=== PATIENT | male | born 1955 | race Caucasian/White ===

== ENCOUNTER 2017-09-29 19:09 | Inpatient (IN) | payer MEDICARE ==
[~2017-09-29] VITALS: Ht 185.4 cm; Wt 110.9 kg
[~2017-09-29 19:09] MED LIST: ACE500 PO; ALBUDR INH; AZIT1PAC21 PO; AZIT500T47 PO; BAC10 PO; BUPR1TAB44 SL; CALC-797 PO; CEFU500T10 PO; CLO5 PO; DIV500 PO; ESZO2TAB30 PO; HYDR2TAB41 PO; HYDR473S4 PO; LIDO35.4 TP; LIDO700A25 TP; MET800 PO; MULT-1335 PO; NOR10 PO; OMEG-8 PO; OXYC80TA52 PO; PER PO; PHEN100 PO; RAM8 PO; [UNRECOGNIZED DRUG - CODE] PO; [UNRECOGNIZED DRUG - CODE] TP
[2017-09-29] MEDS ORDERED: NS(*) 0.9% 1000 ML BAG 1,000 ML IV ONE (19:27)
[2017-09-29] MEDS ORDERED: ALBUTEROL/IPRATROPIUM 3 ML NEB NEB ONE (19:30)
--- NOTE | 2017-09-29 19:30 | ER Report ---
History and Physical Time Seen By MD: 19:14 Hx. of Stated Complaint: COUGH, FEVER, WEAKNESS HPI/ROS CHIEF COMPLAINT: Cough, fever, shortness of breath HISTORY OF PRESENT ILLNESS: This is a 62-year-old male coming by his , who presents to ED with complaint of cough, fever, shortness of breath for the past 2 days. Patient denies any previous lung issues. He denies any ill contacts. Patient states that he has been having some slight chest pain intermittently particularly with coughing. Patient has been feeling weak and having chills. REVIEW OF SYSTEMS: Constitutional: No fever, no chills. Eyes: No discharge. ENT: No sore throat. Cardiovascular: See history of present illness. No palpitations. Respiratory: See history of present illness. Gastrointestinal: No abdominal pain, no vomiting. Genitourinary: No hematuria. Musculoskeletal: No back pain. Skin: No rashes. Neurological: No headache. Allergies: Coded Allergies: aspirin (Verified Allergy, Intermediate, HIVES, 01/11/15) bacitracin (Verified Allergy, Intermediate, HIVES, 01/11/15) adhesive (Verified Allergy, Mild, 01/11/15) aluminum (Verified Allergy, Mild, 01/11/15) Uncoded Allergies: MAPLE FLAVOR (Allergy, Intermediate, RASH, 01/22/12) PECANS (Allergy, Mild, 11/07/07) RED CABBAGE (Allergy, Mild, 11/07/07) RYE (Allergy, Unknown, 10/25/12) SALMON (Allergy, Unknown, 06/14/14) Home Meds Reported Medications Nortriptyline Hcl (NORTRIPTYLINE HCL) 10 Mg Cap, 25 MG PO HS, CAP 01/11/15 Lidocaine (LIDOCAINE) 35.44 Gm Oint...g., 35.44 GM TP WEEKLY 10/25/12 Lidocaine (LIDOCAINE) 700 Mg Adh..patch, 700 MG TP DAILY 10/25/12 Baclofen (Lioresal) 10 Mg Tab, 10 MG PO BID 04/16/12 Buprenorphine Hcl/Naloxone Hcl (Suboxone 8 Mg-2 Mg Tablet) 1 Each Tab.subl, 1 EACH SL BID 04/16/12 Divalproex Sodium (Depakote) 500 Mg Tabcr, 500 MG PO BID, 0 Refills 08/28/10 Discontinued Reported Medications [place]-3 Fatty Acids/Fish Oil (OMEGA-3 FISH OIL SOFTGEL) 1 Each Capsule.dr, 1 EACH PO DAILY 10/25/12 Calcium Carbonate/Vitamin D3 (CALCIUM 600 + VIT D CAPLET) 1 Each Tablet, 1 EACH PO BID 10/25/12 Multivitamins W-Minerals (Multiple Vitamin) 1 Tab Tablet, 1 TAB PO BID 10/25/12 Discontinued Scripts Azithromycin (AZITHROMYCIN) 500 Mg Tablet, 1 TAB PO QDAY, #3 TAB 0 Refills Prov:LV ALFORD MD 01/14/15 Cefuroxime Axetil (CEFUROXIME) 500 Mg Tablet, 500 MG PO BID, #14 TAB 0 Refills Prov:LV ALFORD MD 01/14/15 Reviewed Nurses Notes: Yes Old Medical Records Reviewed: Yes Hx Smoking: No Smoking Status: Never Smoker Hx Substance Use Disorder: No Hx Alcohol Use: No Constitutional Vital Sign - Last 24 Hours 09/29/17 09/29/17 09/29/17 09/29/17 19:23 19:29 19:30 19:45 Temp 100.4 Pulse 84 80 82 Resp 20 B/P (MAP) 141/76 Pulse Ox 85 89 91 O2 Delivery Room Air O2 Flow Rate 2.0 09/29/17 09/29/17 09/29/17 09/29/17 19:47 19:47 19:50 19:51 Pulse 86 79 Resp 20 20 B/P (MAP) 140/76 (97) Pulse Ox 91 O2 Delivery Nasal Cannula O2 Flow Rate 5.0 09/29/17 09/29/17 09/29/17 09/29/17 19:51 19:56 20:00 20:20 Pulse 81 B/P (MAP) 148/78 (101) 136/60 (85) Pulse Ox 96 88 O2 Delivery Nasal Cannula O2 Flow Rate 5.0 5.0 Physical Exam General Appearance: The patient is alert, has no immediate need for airway protection and no signs of toxicity. Patient appears to be no acute distress. Eyes: Pupils equal and round no pallor or injection. ENT, Mouth: Mucous membranes are moist. Respiratory: There are no retractions, lungs are clear to auscultation. Cardiovascular: Regular rate and rhythm. Gastrointestinal: Abdomen is soft and non tender, no masses, bowel sounds normal. Neurological: Cranial nerves II through XII intact. Skin: Warm and dry, no rashes. Musculoskeletal: Neck is supple non tender. Extremities are nontender, nonswollen and have full range of motion. DIFFERENTIAL DIAGNOSIS: After history and physical exam differential diagnosis was considered for shortness of breath including but not limited to pulmonary infectious process, COPD, asthma, pulmonary embolus and congestive heart failure. Medical Decision Making Data Points Result Diagram: 09/29/17193509/29/171935 Laboratory Hematology Test 09/29/17 00:00 09/29/17 19:36 09/29/17 19:39 C-Reactive Protein 3.4 mg/dl (<1.0) Red Blood Count 5.75 M/uL (4.00-5.60) Mean Corpuscular Volume 88.7 fL (80.0-96.0) Mean Corpuscular Hemoglobin 30.5 pg (26.0-33.0) Mean Corpuscular Hemoglobin Concent 34.3 g/dL (32.0-36.0) Red Cell Distribution Width 13.2 % (11.5-14.5) Mean Platelet Volume 7.9 fL (7.2-11.1) Neutrophils (%) (Auto) 82.5 % (39.4-72.5) Lymphocytes (%) (Auto) 7.6 % (17.6-49.6) Monocytes (%) (Auto) 9.1 % (4.1-12.4) Eosinophils (%) (Auto) 0.6 % (0.4-6.7) Basophils (%) (Auto) 0.2 % (0.3-1.4) Nucleated RBC Relative Count (auto) 0.2 /100WBC Neutrophils # (Auto) 3.8 K/uL (2.0-7.4) Lymphocytes # (Auto) 0.4 K/uL (1.3-3.6) Monocytes # (Auto) 0.4 K/uL (0.3-1.0) Eosinophils # (Auto) 0.0 K/uL (0.0-0.5) Basophils # (Auto) 0.0 K/uL (0.0-0.1) Nucleated RBC Absolute Count (auto) 0.01 K/uL Prothrombin Time 13.6 seconds (12.0-14.4) Prothromb Time International Ratio 1.03 Activated Partial Thromboplast Time 35 seconds (23-35) D-Dimer Quantitative (PE/DVT) 0.33 ug/ml (0-0.50) Sodium Level 136 mmol/L (137-145) Potassium Level 4.1 mmol/L (3.5-5.0) Chloride Level 98 mmol/L (98-107) Carbon Dioxide Level 27 mmol/L (22-30) Blood Urea Nitrogen 16 mg/dl (9-21) Creatinine 0.90 mg/dl (0.66-1.25) Glomerular Filtration Rate Calc > 60.0 Random Glucose 111 mg/dl (75-110) Calcium Level 9.7 mg/dl (8.4-10.2) Total Bilirubin 0.7 mg/dl (0.2-1.3) Aspartate Amino Transf (AST/SGOT) 26 U/L (0-35) Alanine Aminotransferase (ALT/SGPT) 33 U/L (0-56) Alkaline Phosphatase 87 U/L (0-126) Troponin I < 0.012 ng/ml Total Protein 8.0 gm/dl (6.3-8.2) Albumin 4.1 g/dl (3.5-5.0) Influenza Virus Type A (PCR) Negative (NEGATIVE) Influenza Virus Type B (PCR) Negative (NEGATIVE) Chemistry Test 09/29/17 00:00 09/29/17 19:36 09/29/17 19:39 C-Reactive Protein 3.4 mg/dl (<1.0) White Blood Count 4.6 k/uL (4.5-11.0) Red Blood Count 5.75 M/uL (4.00-5.60) Hemoglobin 17.5 g/dL (14.0-18.0) Hematocrit 51.0 % (42.0-52.0) Mean Corpuscular Volume 88.7 fL (80.0-96.0) Mean Corpuscular Hemoglobin 30.5 pg (26.0-33.0) Mean Corpuscular Hemoglobin Concent 34.3 g/dL (32.0-36.0) Red Cell Distribution Width 13.2 % (11.5-14.5) Platelet Count 139 K/uL (150-450) Mean Platelet Volume 7.9 fL (7.2-11.1) Neutrophils (%) (Auto) 82.5 % (39.4-72.5) Lymphocytes (%) (Auto) 7.6 % (17.6-49.6) Monocytes (%) (Auto) 9.1 % (4.1-12.4) Eosinophils (%) (Auto) 0.6 % (0.4-6.7) Basophils (%) (Auto) 0.2 % (0.3-1.4) Nucleated RBC Relative Count (auto) 0.2 /100WBC Neutrophils # (Auto) 3.8 K/uL (2.0-7.4) Lymphocytes # (Auto) 0.4 K/uL (1.3-3.6) Monocytes # (Auto) 0.4 K/uL (0.3-1.0) Eosinophils # (Auto) 0.0 K/uL (0.0-0.5) Basophils # (Auto) 0.0 K/uL (0.0-0.1) Nucleated RBC Absolute Count (auto) 0.01 K/uL Prothrombin Time 13.6 seconds (12.0-14.4) Prothromb Time International Ratio 1.03 Activated Partial Thromboplast Time 35 seconds (23-35) D-Dimer Quantitative (PE/DVT) 0.33 ug/ml (0-0.50) Glomerular Filtration Rate Calc > 60.0 Calcium Level 9.7 mg/dl (8.4-10.2) Total Bilirubin 0.7 mg/dl (0.2-1.3) Aspartate Amino Transf (AST/SGOT) 26 U/L (0-35) Alanine Aminotransferase (ALT/SGPT) 33 U/L (0-56) Alkaline Phosphatase 87 U/L (0-126) Troponin I < 0.012 ng/ml Total Protein 8.0 gm/dl (6.3-8.2) Albumin 4.1 g/dl (3.5-5.0) Influenza Virus Type A (PCR) Negative (NEGATIVE) Influenza Virus Type B (PCR) Negative (NEGATIVE) Coagulation Test 09/29/17 19:36 Prothrombin Time 13.6 seconds Prothromb Time International Ratio 1.03 Activated Partial Thromboplast Time 35 seconds D-Dimer Quantitative (PE/DVT) 0.33 ug/ml EKG/Imaging EKG Interpretation 12 lead EKG: Rhythm: Sinus rhythm, rate 80 bpm [place]: normal QRS: normal ST segments: No acute ST changes identified. There is slight T-wave inversion in V1 and T-wave flattening in V2. [ ] Monitor Interpretation: Normal Sinus Rhythm Imaging CXR: IMPRESSION: Medial right lower lung opacification suspicious for infection in the appropriate setting. Consider follow-up to assess resolution. Report Dictated By: José Kemp MD at 09/29/2017 8:32 PM Report E-Signed By: José Kemp MD at 09/29/2017 8:36 PM ED Course/Re-evaluation Clinical Indication for ER IV: Hydration ED Course Will obtain labs and chest x-ray. Patient was given a liter normal saline bolus 09/29/2017 9:05:36 pm - the patient Dr. Wynne, hospitalist, who will come and evaluate the patient. Will get blood cultures on the patient and start patient on IV azithromycin and Rocephin. 09/29/2017 9:45:56 pm - Dr. Wynne, hospitalist, will accept patient under his care. Will give patient Tylenol here. Decision to Disposition Date: Sep 29, 2017 Decision to Disposition Time: 21:45 Depart Departure Latest Vital Signs Vital Signs Date Time Temp Pulse Resp B/P (MAP) Pulse Ox O2 Delivery O2 Flow Rate FiO2 09/29/17 20:20 136/60 (85) 09/29/17 20:00 81 88 09/29/17 19:56 5.0 09/29/17 19:51 Nasal Cannula 09/29/17 19:51 20 09/29/17 19:23 100.4 Impression: Primary Impression: Community acquired pneumonia Condition: Improved Disposition: Admitted from ER Referrals: ARBEN SANCHEZ DO (PCP) Consult Note: Dr. Wynne, Hospitalist Problem Qualifiers Primary Impression: Community acquired pneumonia Laterality: right Lung location: lower lobe of lung Qualified Codes: J18.1 - Lobar pneumonia, unspecified organism JUDITH BEEBE PA-C Sep 29, 2017 19:30
--- NOTE | 2017-09-29 20:10 | EKG ---
[place] [facility] [place] BAIR WHITE : [id number] MR: [id number] V: [id number] EXAM DATE: ORDERING PHYSICIAN: JUDITH BEEBE TECHNOLOGIST: Emory Rico Reason : Blood Pressure : / mmHG Vent. Rate : 080 BPM Atrial Rate : 080 BPM P-R Int : 154 ms QRS Dur : 094 ms QT Int : 430 ms P-R-T Axes : 038 051 021 degrees QTc Int : 495 ms Normal sinus rhythm Prolonged QT Non-specific ST-T abnormalities diffusely When compared with ECG of 11-JAN-2015 20:50, Nonspecific T wave abnormality now evident in Anterior leads Confirmed by MATT MCLEOD ([id number]) on 09/29/2017 10:17:51 PM Referred By: Confirmed By:MATT MCLEOD
[2017-09-29 20:14] LABS: PLATELET COUNT, AUTOMATED 139 K/uL (150-450)
[2017-09-29 20:20] LABS: INR 1.03
--- NOTE | 2017-09-29 20:39 | RADIOLOGY IMAGING REPORT ---
FACILITY: [facility] PATIENT NAME: Dedrick Izaguirre : 1955 MR: [id number] V: [id number] EXAM DATE: ORDERING PHYSICIAN: JUDITH BEEBE TECHNOLOGIST: Location: [facility] [place] Patient: Dedrick Izaguirre : 1955 Visit/Account:[id number] Date of Sevice: 09/29/2017 CHEST PA AND LATERAL 09/29/2017 7:27 PM. INDICATION: Respiratory distress. COMPARISON: 01/11/2015. FINDINGS: Mild hypoexpansion. There is patchy opacification of the medial right lower lung that part ially obscures the cardiomediastinal silhouette. Adjacent bronchial wall thickening. No pneumothora x or pleural effusion. Heart size is normal. Implant dual-chamber pacer. Incompletely imaged spina l stimulator leads terminating over the lower thoracic spine. IMPRESSION: Medial right lower lung opacification suspicious for infection in the appropriate setting . Consider follow-up to assess resolution. Report Dictated By: José Kemp MD at 09/29/2017 8:32 PM Report E-Signed By: José Kemp MD at 09/29/2017 8:36 PM [id number]
[2017-09-29] MEDS: AZITHROMYCIN(*) 500 MG 500 MG in NS(*) 0.9% 250 ML BAG 250 ML IVPB ONE ×2 (21:10→21:55)
[2017-09-29] MEDS ORDERED: cefTRIAXone 1 GM VIAL IVP ONE (21:10)
[2017-09-29] MEDS ORDERED: ACETAMINOPHEN 325 MG TAB PO ONE (21:45)
[2017-09-29] MEDS ORDERED: BUPR1FIL SL (22:22)
[2017-09-29 22:26] VITALS: BP 116/65
[2017-09-29] MEDS ORDERED: LEVO88TA45 PO (22:39)
[2017-09-29] MEDS ORDERED: LIDOCAINE 5% OINT 35.44 GM OINT TP PRN (23:10)
[2017-09-29] MEDS ORDERED: LIDOCAINE 5% PATCH TP SCH (23:10)
[2017-09-29] MEDS ORDERED: ALBUTEROL 2.5 MG/3 ML NEB NEB PRN (23:15)
[2017-09-29] MEDS ORDERED: INFLUENZA VIRUS VAC 0.5 ML SYR IM ONLY ONE (23:15)
--- NOTE | 2017-09-29 23:30 | History & Physical ---
History of Present Illness History of Present Illness 62yo male with chronic pain who came in for cough and fever. For the last week , he hasn't been feeling very well, but not reporting any specific symptoms. For the last 2 days, he has had a cough, and fever. Today, he became much more weak and much more chilled. He is not reporting nausea, vomiting, or diarrhea. He was visiting grandchildren and there were some sick people in the house. In the ER, he was given a liter of fluid, APAP, ceftriaxone and azithromycin. History Problems: (1) Hypothyroid Status: Chronic (2) Status post placement of cardiac pacemaker Status: Chronic (3) Seizure Status: Chronic (4) Chronic pain Status: Chronic (5) TBI (traumatic brain injury) Status: Chronic (6) JOHANNA (obstructive sleep apnea) Status: Chronic Home Meds Reported Medications Levothyroxine Sodium (LEVOTHYROXINE SODIUM) 88 Mcg Tablet, 88 MCG PO QDAY 09/29/17 Buprenorphine Hcl/Naloxone Hcl (SUBOXONE 4 MG-1 MG SL FILM) 1 Each Film, 1 EACH SL BID, FILM 09/29/17 Nortriptyline Hcl (NORTRIPTYLINE HCL) 10 Mg Cap, 25 MG PO HS, CAP 01/11/15 Lidocaine (LIDOCAINE) 35.44 Gm Oint...g., 35.44 GM TP WEEKLY 10/25/12 Lidocaine (LIDOCAINE) 700 Mg Adh..patch, 700 MG TP DAILY 10/25/12 Baclofen (Lioresal) 10 Mg Tab, 10 MG PO BID 04/16/12 Divalproex Sodium (Depakote) 500 Mg Tabcr, 500 MG PO BID, 0 Refills 08/28/10 Discontinued Reported Medications [place]-3 Fatty Acids/Fish Oil ([place]-3 FISH OIL SOFTGEL) 1 Each Capsule.dr, 1 EACH PO DAILY 10/25/12 Calcium Carbonate/Vitamin D3 (CALCIUM 600 + VIT D CAPLET) 1 Each Tablet, 1 EACH PO BID 10/25/12 Multivitamins W-Minerals (Multiple Vitamin) 1 Tab Tablet, 1 TAB PO BID 10/25/12 Buprenorphine Hcl/Naloxone Hcl (Suboxone 8 Mg-2 Mg Tablet) 1 Each Tab.subl, 1 EACH SL BID 04/16/12 Discontinued Scripts Azithromycin (AZITHROMYCIN) 500 Mg Tablet, 1 TAB PO QDAY, #3 TAB 0 Refills Prov:LV ALFORD MD 01/14/15 Cefuroxime Axetil (CEFUROXIME) 500 Mg Tablet, 500 MG PO BID, #14 TAB 0 Refills Prov:LV ALFORD MD 01/14/15 Allergies: Coded Allergies: aspirin (Verified Allergy, Intermediate, HIVES, 01/11/15) bacitracin (Verified Allergy, Intermediate, HIVES, 01/11/15) adhesive (Verified Allergy, Mild, 01/11/15) aluminum (Verified Allergy, Mild, 01/11/15) Uncoded Allergies: MAPLE FLAVOR (Allergy, Intermediate, RASH, 01/22/12) PECANS (Allergy, Mild, 11/07/07) RED CABBAGE (Allergy, Mild, 11/07/07) RYE (Allergy, Unknown, 10/25/12) SALMON (Allergy, Unknown, 06/14/14) Hx Smoking: No Smoking Status: Never Smoker Caffeine Intake: Soda Caffeine/Cups Per Day: "Some" Hx Alcohol Use: No Hx Substance Use Disorder: No Review of Systems All Systems Reviewed/Normal: Yes, Except as Noted Exam Vital Signs Vital Signs Date Time Temp Pulse Resp B/P (MAP) Pulse Ox O2 Delivery O2 Flow Rate FiO2 09/29/17 22:26 99.5 73 16 116/65 (82) 91 High-Flow Nasal Cannula 5.0 General Appearance: Other (Eyes are closed, but he awakens easily and answers questions appropriately.) Eyes: PERRLA ENT: Moist Mucous Membranes Cardiovascular: Regular Rate and Rhythm Respiratory: Other (Crackles in the mid right lung. Moving air fairly well.) GI: Abd Soft and Non-Tender Extremities: No Edema Integumentary: No Jaundice, No Cyanosis Medical Decision Making Data Points Result Diagram: 09/29/17193509/29/171935 Item Value Date Time C-Reactive Protein 3.4 mg/dl H 09/29/17 0000 Troponin I < 0.012 ng/ml 09/29/171935 Total Bilirubin 0.7 mg/dl 09/29/171935 Aspartate Amino Transf (AST/SGOT) 26 U/L 09/29/171935 Alanine Aminotransferase (ALT/SGPT) 33 U/L 09/29/171935 Alkaline Phosphatase 87 U/L 09/29/171935 Neutrophils (%) (Auto) 82.5 % H 09/29/171935 Lymphocytes (%) (Auto) 7.6 % L 09/29/171935 D-Dimer Quantitative (PE/DVT) 0.33 ug/ml 09/29/171935 Prothromb Time International Ratio 1.03 09/29/171935 Influenza Virus Type A (PCR) Negative 09/29/171938 Influenza Virus Type B (PCR) Negative 09/29/171938 EKG / Imaging EKG Interpretation Vent. Rate : 080 BPM Atrial Rate : 080 BPM P-R Int : 154 ms QRS Dur : 094 ms QT Int : 430 ms P-R-T Axes : 038 051 021 degrees QTc Int : 495 ms Normal sinus rhythm Prolonged QT Non-specific ST-T abnormalities diffusely When compared with ECG of 11-JAN-2015 20:50, Nonspecific T wave abnormality now evident in Anterior leads Confirmed by MATT MCLEOD ([id number]) on 09/29/2017 10:17:51 PM Imaging CXR - Medial right lower lung opacification suspicious for infection in the appropriate setting. Consider follow-up to assess resolution. Assessment and Plan Problems: (1) Community acquired pneumonia Status: Acute Assessment & Plan: He presented with 2 days of cough and fevers. He has infiltrate on the right by CXR, hypoxic, febrile and has a neutrophilia. His BP /P are stable. Will continue Ceftriaxone and Azithromycin. (2) Hypoxia Status: Acute Assessment & Plan: Secondary to pneumonia and exacerbated by Suboxone. (3) Chronic pain Status: Chronic Assessment & Plan: The pain is in the back and neck. Continue Suboxone, Nortriptyline, Lidoderm patches, Lidocaine ointment, and Baclofen. (4) Hypothyroid Status: Chronic Assessment & Plan: Continue levothyroxine. (5) TBI (traumatic brain injury) Status: Chronic Assessment & Plan: He has a h/o seizure with this. Continue Divalproex. (6) JOHANNA (obstructive sleep apnea) Status: Chronic Assessment & Plan: Untreated. Will follow. Copies to: ARBEN SANCHEZ DO Venous Thromboembolism Antithrombotics Is Pt On Any Antithrombotics?: No Exam Sepsis Risk: No Definite Risk Problem Qualifiers (1) Community acquired pneumonia: Laterality: right Lung location: lower lobe of lung Qualified Codes: J18.1 - Lobar pneumonia, unspecified organism MATT MCLEOD MD Sep 29, 2017 23:30
[2017-09-29] MEDS: DIVALPROEX SOD DR 500 MG TAB PO SCH (23:58)
[2017-09-29] MEDS: NORTRIPTYLINE HCL 25 MG CAP PO SCH (23:58)
[2017-09-30 05:42] VITALS: BP 99/56
[2017-09-30] MEDS: LEVOTHYROXINE SOD 0.088 MG TAB PO SCH (05:44)
[2017-09-30] MEDS: ALBUTEROL/IPRATROPIUM 3 ML NEB NEB SCH ×3 (05:58→16:57)
[2017-09-30 06:18] LABS: PLATELET COUNT, AUTOMATED 138 K/uL (150-450)
[2017-09-30 08:11] VITALS: BP 97/57
--- NOTE | 2017-09-30 08:55 | Hospitalist Progress Note ---
Subjective Progress Notes Subjective He reports chills. No concerns from staff. Physical Exam Vital Signs Date Time Temp Pulse Resp B/P (MAP) Pulse Ox O2 Delivery O2 Flow Rate FiO2 09/30/17 08:21 93 Nasal Cannula 5.0 09/30/17 08:11 98.9 62 24 97/57 (70) General Appearance: Alert, Awake, No Acute Distress Cardiovascular: Regular Rate and Rhythm (2/6 systolic murmur) Respiratory: Clear to Auscultation Result Diagram: 09/30/17 0515 09/30/17514 Monitor Interpretation: Normal Sinus Rhythm Assessment and Plan Problems: (1) Community acquired pneumonia Status: Acute Assessment & Plan: He presented with 2 days of cough and fevers. He has infiltrate on the right by CXR, hypoxic, febrile and has a neutrophilia. His BP /P are stable. Will continue Ceftriaxone and Azithromycin. (2) Hypoxia Status: Acute Assessment & Plan: Secondary to pneumonia and exacerbated by Suboxone. (3) Chronic pain Status: Chronic Assessment & Plan: The pain is in the back and neck. Continue Suboxone, Nortriptyline, Lidoderm patches, Lidocaine ointment, and Baclofen. (4) Hypothyroid Status: Chronic Assessment & Plan: Continue levothyroxine. (5) TBI (traumatic brain injury) Status: Chronic Assessment & Plan: He has a h/o seizure with this. Continue Divalproex. (6) JOHANNA (obstructive sleep apnea) Status: Chronic Assessment & Plan: Untreated. Will follow. Exam Sepsis Risk: No Definite Risk Problem Qualifiers (1) Community acquired pneumonia: Laterality: right Lung location: lower lobe of lung Qualified Codes: J18.1 - Lobar pneumonia, unspecified organism MATT MCLEOD MD Sep 30, 2017 08:55
[2017-09-30] MEDS ORDERED: cefTRIAXone 1 GM VIAL IVP SCH (09:00)
[2017-09-30] MEDS ORDERED: PATIENT'S OWN MED SL SCH (09:00)
[2017-09-30] MEDS: ENOXAPARIN 40 MG/0.4ML SYR SC SCH (09:25)
[2017-09-30] MEDS: DIVALPROEX SOD DR 500 MG TAB PO SCH ×2 (09:26→21:12)
[2017-09-30] MEDS: BACLOFEN 10 MG TAB PO SCH ×3 (09:26→21:11)
[2017-09-30] MEDS: PATCH REMOVAL 1 EA TP SCH (09:27)
[2017-09-30] MEDS: NS(*) 0.9% 1000 ML BAG 1,000 ML IV PRN ×2 (09:27→17:44)
[2017-09-30 10:54] VITALS: Ht 185.4 cm; Wt 110.9 kg
[2017-09-30 11:35] VITALS: BP 106/67
[2017-09-30] MEDS: ACETAMINOPHEN 500 MG TAB PO PRN ×2 (11:42→22:54)
[2017-09-30 14:11] VITALS: BP 112/67
[2017-09-30 19:27] VITALS: BP 112/58
[2017-09-30] MEDS: cefTRIAXone 1 GM VIAL IVP SCH (21:12)
[2017-09-30] MEDS: NORTRIPTYLINE HCL 25 MG CAP PO SCH (21:12)
[2017-09-30] MEDS: PATIENT'S OWN MED SL SCH (21:12)
[2017-09-30] MEDS: LIDOCAINE 5% PATCH TP SCH (21:13)
[2017-09-30] MEDS: AZITHROMYCIN(*) 500 MG 500 MG in NS(*) 0.9% 250 ML BAG 250 ML IVPB SCH (21:20)
[2017-09-30] MEDS: MAGNESIUM HYDROXIDE* 30ML UDCP PO PRN (23:56)
[2017-09-30 23:57] VITALS: BP 109/59
[2017-10-01] MEDS: NS(*) 0.9% 1000 ML BAG 1,000 ML IV PRN (03:26)
[2017-10-01] MEDS: ALBUTEROL/IPRATROPIUM 3 ML NEB NEB SCH ×3 (05:36→17:01)
[2017-10-01 06:12] LABS: PLATELET COUNT, AUTOMATED 113 K/uL (150-450)
[2017-10-01] MEDS: LEVOTHYROXINE SOD 0.088 MG TAB PO SCH (06:34)
[2017-10-01 07:16] VITALS: BP 108/69
[2017-10-01] MEDS: PATCH REMOVAL 1 EA TP SCH (09:00)
[2017-10-01] MEDS ORDERED: NS(*) 0.9% 1000 ML BAG 1,000 ML IV PRN (09:14)
[2017-10-01] MEDS: MAGNESIUM HYDROXIDE* 30ML UDCP PO PRN (09:44)
[2017-10-01] MEDS: PATIENT'S OWN MED SL SCH ×2 (09:46→20:22)
[2017-10-01] MEDS: DIVALPROEX SOD DR 500 MG TAB PO SCH ×2 (09:46→20:23)
[2017-10-01] MEDS: ENOXAPARIN 40 MG/0.4ML SYR SC SCH (09:47)
[2017-10-01] MEDS: BACLOFEN 10 MG TAB PO SCH ×3 (09:47→20:23)
[2017-10-01] MEDS: DOCUSATE SODIUM 100 MG CAP PO SCH ×2 (09:47→20:23)
[2017-10-01 10:58] VITALS: BP 108/66
[2017-10-01] MEDS: ACETAMINOPHEN 500 MG TAB PO PRN ×2 (11:11→23:00)
--- NOTE | 2017-10-01 14:55 | Hospitalist Progress Note ---
Subjective Progress Notes Subjective Having some chest pain. Has had this since he was diagnosed with pneumonia. Coughing up bloody sputum. Physical Exam Vital Signs Date Time Temp Pulse Resp B/P (MAP) Pulse Ox O2 Delivery O2 Flow Rate FiO2 10/01/17 11:09 60 16 10/01/17 11:00 93 Nasal Cannula 3.5 10/01/17 10:58 97.7 108/66 (80) Intake and Output 10/02/17 07:00 Intake Total 720 ml Balance 720 ml Intake Oral 720 ml General Appearance: Alert, Awake, Other (Appears like he doesn't feel well.) Eyes: PERRLA Cardiovascular: Regular Rate and Rhythm Respiratory: Other (Crackles R base.) GI: Soft and Non-Tender Extremities: Warm, Perfused Psych: Appropriate Mood & Affect Result Diagram: 10/01/1746 10/01/17 0546 Monitor Interpretation: Normal Sinus Rhythm Assessment and Plan Problems: (1) Community acquired pneumonia Status: Acute Assessment & Plan: He presented with 2 days of cough and fevers. He has infiltrate on the right by CXR, hypoxic, febrile and has a neutrophilia. His BP /P are stable. Will continue Ceftriaxone and Azithromycin. (2) Hypoxia Status: Acute Assessment & Plan: Secondary to pneumonia and exacerbated by Suboxone. (3) Chronic pain Status: Chronic Assessment & Plan: The pain is in the back and neck. Continue Suboxone, Nortriptyline, Lidoderm patches, Lidocaine ointment, and Baclofen. (4) Hypothyroid Status: Chronic Assessment & Plan: Continue levothyroxine. (5) TBI (traumatic brain injury) Status: Chronic Assessment & Plan: He has a h/o seizure with this. Continue Divalproex. Level ordered. (6) JOHANNA (obstructive sleep apnea) Status: Chronic Assessment & Plan: Untreated. Will follow. (7) Pancytopenia Status: Chronic Assessment & Plan: The patient has a low WBC this am. He also has mild anemia and thrombocytopenia. Looking back at the EMR record, he has had mildly decreased WBC for several years. Could be medication related. Will also check B12 and folate. He was on Dilantin for many years and was switched to divalproex about 10 years ago. He sees Dr. Duong in [place]. Time Spent on Plan of Care: < 30 min Exam Sepsis Risk: No Definite Risk Problem Qualifiers (1) Community acquired pneumonia: Laterality: right Lung location: lower lobe of lung Qualified Codes: J18.1 - Lobar pneumonia, unspecified organism LUIS EDUARDO ALFORD MD Oct 01, 2017 14:55
[2017-10-01 15:00] VITALS: BP 124/71
[2017-10-01 20:06] VITALS: BP 140/85
[2017-10-01] MEDS: LIDOCAINE 5% PATCH TP SCH (20:22)
[2017-10-01] MEDS: NORTRIPTYLINE HCL 25 MG CAP PO SCH (20:23)
[2017-10-01] MEDS: cefTRIAXone 1 GM VIAL IVP SCH (20:28)
[2017-10-01] MEDS: AZITHROMYCIN(*) 500 MG 500 MG in NS(*) 0.9% 250 ML BAG 250 ML IVPB SCH (21:35)
[2017-10-02 00:49] VITALS: BP 109/61
[2017-10-02] MEDS: LEVOTHYROXINE SOD 0.088 MG TAB PO SCH (05:42)
[2017-10-02 05:45] VITALS: BP 107/65
[2017-10-02 05:58] LABS: PLATELET COUNT, AUTOMATED 113 K/uL (150-450)
[2017-10-02] MEDS: ALBUTEROL/IPRATROPIUM 3 ML NEB NEB SCH ×3 (06:16→17:03)
[2017-10-02 07:27] VITALS: BP 125/77
[2017-10-02] MEDS: PATIENT'S OWN MED SL SCH ×2 (09:00→20:49)
[2017-10-02] MEDS: PATCH REMOVAL 1 EA TP SCH (09:00)
[2017-10-02] MEDS: ENOXAPARIN 40 MG/0.4ML SYR SC SCH (09:24)
[2017-10-02] MEDS: BACLOFEN 10 MG TAB PO SCH ×3 (09:24→20:50)
[2017-10-02] MEDS: DIVALPROEX SOD DR 500 MG TAB PO SCH ×2 (09:25→20:50)
[2017-10-02] MEDS: DOCUSATE SODIUM 100 MG CAP PO SCH ×2 (09:26→20:50)
[2017-10-02] MEDS: ACETAMINOPHEN 500 MG TAB PO PRN ×2 (13:15→21:52)
[2017-10-02 14:15] VITALS: BP 119/62
--- NOTE | 2017-10-02 16:30 | Hospitalist Progress Note ---
Subjective Progress Notes Subjective Still with a cough and productive, blood tinged sputum. Overall improving with symptoms. Physical Exam Vital Signs Date Time Temp Pulse Resp B/P (MAP) Pulse Ox O2 Delivery O2 Flow Rate FiO2 10/02/17 14:15 99.3 70 16 119/62 (81) 91 Nasal Cannula 3.0 Intake and Output 10/03/17 07:00 Intake Total 240 ml Balance 240 ml Intake Oral 240 ml General Appearance: Other (Falls asleep easily, but awakens easily and answers questions appropriately) Cardiovascular: Regular Rate and Rhythm Respiratory: Clear to Auscultation Result Diagram: 10/02/17 0548 10/02/17 0548 Monitor Interpretation: Normal Sinus Rhythm Assessment and Plan Problems: (1) Community acquired pneumonia Status: Acute Assessment & Plan: He presented with 2 days of cough and fevers. He has infiltrate on the right by CXR, was hypoxic, febrile and had a neutrophilia. His BP/P are stable. Will continue Ceftriaxone and Azithromycin. (2) Hypoxia Status: Acute Assessment & Plan: Secondary to pneumonia and exacerbated by Suboxone. (3) Pancytopenia Status: Chronic Assessment & Plan: The patient has a low WBC this am. He also has mild anemia and thrombocytopenia. Looking back at the EMR record, he has had mildly decreased WBC for several years. Could be medication related. Will also check B12 and folate. He was on Dilantin for many years and was switched to divalproex about 10 years ago. He sees Dr[address] Duong in [place]. (4) Chronic pain Status: Chronic Assessment & Plan: The pain is in the back and neck. Continue Suboxone, Nortriptyline, Lidoderm patches, Lidocaine ointment, and Baclofen. (5) Hypothyroid Status: Chronic Assessment & Plan: Continue levothyroxine. (6) TBI (traumatic brain injury) Status: Chronic Assessment & Plan: He has a h/o seizure with this. Continue Divalproex. Level ordered. (7) JOHANNA (obstructive sleep apnea) Status: Chronic Assessment & Plan: Untreated. Will follow. Exam Sepsis Risk: No Definite Risk Problem Qualifiers (1) Community acquired pneumonia: Laterality: right Lung location: lower lobe of lung Qualified Codes: J18.1 - Lobar pneumonia, unspecified organism MATT MCLEOD MD Oct 02, 2017 16:29
[2017-10-02] MEDS: LIDOCAINE 5% PATCH TP SCH (17:51)
[2017-10-02 19:34] VITALS: BP 134/76
[2017-10-02] MEDS: NORTRIPTYLINE HCL 25 MG CAP PO SCH (20:50)
[2017-10-02] MEDS: cefTRIAXone 1 GM VIAL IVP SCH (20:50)
[2017-10-02] MEDS: AZITHROMYCIN(*) 500 MG 500 MG in NS(*) 0.9% 250 ML BAG 250 ML IVPB SCH (21:52)
[2017-10-03 00:38] VITALS: BP 130/71
[2017-10-03 05:15] VITALS: BP 136/79
[2017-10-03] MEDS: LEVOTHYROXINE SOD 0.088 MG TAB PO SCH (05:16)
[2017-10-03] MEDS: ALBUTEROL/IPRATROPIUM 3 ML NEB NEB SCH ×2 (05:42→11:08)
[2017-10-03 06:04] LABS: PLATELET COUNT, AUTOMATED 127 K/uL (150-450)
[2017-10-03 07:06] VITALS: BP 128/80
[2017-10-03] MEDS ORDERED: levETIRAcetam 500 MG TAB PO SCH (09:00)
[2017-10-03] MEDS: PATCH REMOVAL 1 EA TP SCH (09:00)
[2017-10-03] MEDS: PATIENT'S OWN MED SL SCH (09:45)
[2017-10-03] MEDS: DOCUSATE SODIUM 100 MG CAP PO SCH (09:45)
[2017-10-03] MEDS: BACLOFEN 10 MG TAB PO SCH (09:45)
[2017-10-03] MEDS: ENOXAPARIN 40 MG/0.4ML SYR SC SCH (09:45)
[2017-10-03] MEDS ORDERED: DIVALPROEX SOD ER 500 MG TABSR PO SCH (10:00)
[2017-10-03] MEDS: DIVALPROEX SOD DR 500 MG TAB PO SCH (10:02)
[2017-10-03] MEDS ORDERED: CEFU500T10 PO (10:12)
[2017-10-03] MEDS ORDERED: AZIT500T47 PO (10:12)
--- NOTE | 2017-10-03 10:24 | Hospitalist Depart ---
Discharge Summary Reason for Hosp/Final Diag: (1) Community acquired pneumonia Status: Acute Hospital Course & Plan: He presented with 2 days of cough and fevers. He has infiltrate on the right on CXR, hypoxic, febrile, and had a neutrophilia. He was started on IV Ceftriaxone and Azithromycin and given supplemental oxygen and respiratory treatments. He showed continual improvement in his status. He will be transitioned to oral azithromycin and cefuroxime to complete his course of therapy. He will also be on temporary oxygen. He will follow up with Dr. Sanchez closely as an outpatient. He will need a follow up CXR in 4-6 weeks. (2) Hypoxia Status: Acute Hospital Course & Plan: Secondary to pneumonia and exacerbated by Suboxone. (3) Pancytopenia Status: Chronic Hospital Course & Plan: The patient has a low WBC count. He also has mild anemia and thrombocytopenia. Looking back at the EMR record, he has had mildly decreased WBC for several years. this could be medication related or possibly exacerbated by his acute illness. B12 and folate levels are currently pending. He was on Dilantin for many years and was switched to divalproex about 10 years ago. (4) Chronic pain Status: Chronic Hospital Course & Plan: The pain is in the back and neck. Continue Suboxone, Nortriptyline, Lidoderm patches, Lidocaine ointment, and Baclofen. (5) Hypothyroid Status: Chronic Hospital Course & Plan: Continue levothyroxine. (6) TBI (traumatic brain injury) Status: Chronic Hospital Course & Plan: He has a history of seizure related to this. Continue Divalproex. Level was 43.7 during this admission. (7) JOHANNA (obstructive sleep apnea) Status: Chronic Hospital Course & Plan: He has not treated this at his discretion. Departure Weight (Pounds): 244 Weight (Ounces): 8.0 Result Diagram: 10/03/1748 10/02/17547 Item Value Date Time White Blood Count 4.6 k/uL 09/29/171935 Hemoglobin 17.5 g/dL 09/29/171935 Hematocrit 51.0 % 09/29/171935 Platelet Count 139 K/uL L 09/29/171935 Platelet Count 138 K/uL L 09/30/17514 Hematocrit 42.7 % 3/18/18 0515 Hemoglobin 14.7 g/dL 09/30/17 0515 White Blood Count 6.9 k/uL 09/30/17 0515 White Blood Count 2.5 k/uL L 10/01/17 0546 Hemoglobin 13.6 g/dL L 10/01/17 0546 Hematocrit 40.2 % L 10/01/17 0546 Platelet Count 113 K/uL L 10/01/17 0546 Platelet Count 113 K/uL L 10/02/17 0548 Hematocrit 38.7 % L 10/02/17 0548 Hemoglobin 13.4 g/dL L 10/02/17 0548 White Blood Count 2.3 k/uL L 10/02/17 0548 Sodium Level 136 mmol/L L 09/29/171935 Potassium Level 4.1 mmol/L 09/29/171935 Chloride Level 98 mmol/L 09/29/171935 Blood Urea Nitrogen 16 mg/dl 09/29/171935 Carbon Dioxide Level 27 mmol/L 09/29/171935 Creatinine 0.90 mg/dl 09/29/171935 Glomerular Filtration Rate Calc > 60.0 09/29/171935 Random Glucose 111 mg/dl H 09/29/171935 Calcium Level 9.7 mg/dl 09/29/171935 Total Bilirubin 0.7 mg/dl 09/29/171935 Aspartate Amino Transf (AST/SGOT) 26 U/L 09/29/171935 Alanine Aminotransferase (ALT/SGPT) 33 U/L 09/29/171935 Alkaline Phosphatase 87 U/L 09/29/171935 Troponin I < 0.012 ng/ml 09/29/171935 Total Protein 8.0 gm/dl 09/29/171935 Albumin 4.1 g/dl 09/29/171935 Thyroid Stimulating Hormone (TSH) 7.73 uIU/ml H 10/02/17547 D-Dimer Quantitative (PE/DVT) 0.33 ug/ml 09/29/171935 Activated Partial Thromboplast Time 35 seconds 09/29/171935 Prothrombin Time 13.6 seconds 09/29/171935 Prothromb Time International Ratio 1.03 09/29/171935 Valproic Acid (Depakene) Level 43.7 ug/ml 10/02/1748 Influenza Virus Type A (PCR) Negative 09/29/171938 Influenza Virus Type B (PCR) Negative 09/29/171938 [facility] [place] [facility] *LIVE* [address] [place] [address] JOSE SPARKS M.D., DIRECTOR OF LABORATORY SERVICES MOJGAN ESCUDERO M.D., PATHOLOGIST RUN DATE: 10/02/17 Specimen Inquiry Report PAGE 1 RUN TIME: 1000 PATIENT: BARI IZAGUIRRE ACCT: [id number] LOC: [facility] U : [id number] AGE/SX: 62/M ROOM: [facility] REG : 09/29/[address]: MATT MCLEOD MD : 1955 BED: 275 DIS : STATUS: ADM IN TLOC: SPEC #: [id number] FERCHO: 09/29/17 STATUS: RES REQ #: [id number] RECD: 09/29/[address]: JUDITH BEEBE SOURCE: BLOOD ENTR: 09/29/[address] [facility] [address]: CHIKI SANCHEZ DO [facility]: ORDERED: CULT BLOOD Procedure Result Verified BLOOD CULTURE Preliminary 10/02/17-1000 NO GROWTH AFTER 3 DAYS, REINCUBATED [facility] *LIVE* [address] [place] [address] JOSE SPARKS M.D., DIRECTOR OF LABORATORY SERVICES MOJGAN ESCUDERO M.D., PATHOLOGIST RUN DATE: 10/02/17 Specimen Inquiry Report PAGE 1 RUN TIME: 1000 PATIENT: BARI Rhea ACCT: [id number] LOC: MED U : [id number] AGE/SX: 62/M ROOM: 2275 REG : 09/29/[address]: MATT MCLEOD MD : 1955 BED: 275 DIS : STATUS: ADM IN TLOC: SPEC #: [id number] FERCHO: 09/29/17 STATUS: RES REQ #: [id number] RECD: 09/29/[address] [place] [address]: JUDITH BEEBE SOURCE: BLOOD LINE ENTR: 09/29/[address] [facility] [address]: CHIKI SANCHEZ DO [facility]: ORDERED: CULT BLOOD Procedure Result Verified BLOOD CULTURE Preliminary 10/02/17-999 NO GROWTH AFTER 3 DAYS, REINCUBATED Imaging PATIENT NAME: Bari Izaguirre : 1955 MR: [id number] V: [id number] EXAM DATE: ORDERING PHYSICIAN: JUDITH BEEBE TECHNOLOGIST: Location: [facility] - [place], [place] Patient: Bari Izaguirre : 1955 Visit/Account:[id number] Date of Sevice: 09/29/2017 CHEST PA AND LATERAL 09/29/2017 7:27 PM. INDICATION: Respiratory distress. COMPARISON: 01/11/2015. FINDINGS: Mild hypoexpansion. There is patchy opacification of the medial right lower lung that partially obscures the cardiomediastinal silhouette. Adjacent bronchial wall thickening. No pneumothorax or pleural effusion. Heart size is normal. Implant dual-chamber pacer. Incompletely imaged spinal stimulator leads terminating over the lower thoracic spine. IMPRESSION: Medial right lower lung opacification suspicious for infection in the appropriate setting. Consider follow-up to assess resolution. Report Dictated By: José Kemp MD at 09/29/2017 8:32 PM Report E-Signed By: José Kemp MD at 09/29/2017 8:36 PM WSN:[id number] EKG PATIENT NAME: BARI IZAGUIRRE : [id number] MR: [id number] V: [id number] EXAM DATE: ORDERING PHYSICIAN: JUDITH BEEBE TECHNOLOGIST: Emory Rico Reason : Blood Pressure : / mmHG Vent. Rate : 080 BPM Atrial Rate : 080 BPM P-R Int : 154 ms QRS Dur : 094 ms QT Int : 430 ms P-R-T Axes : 038 051 021 degrees QTc Int : 495 ms Normal sinus rhythm Prolonged QT Non-specific ST-T abnormalities diffusely When compared with ECG of 11-JAN-2015 20:50, Nonspecific T wave abnormality now evident in Anterior leads Confirmed by MATT MCLEOD ([id number]) on 09/29/2017 10:17:51 PM Referred By: Confirmed By:MATT MCLEOD Condition: Improved Discharge: Home, Self Care Follow-Up Labs: Other (CBC on Sunday10/08/[address] Sanchez.) Time Spent: > 30 min Discharge Instructions Home Meds Active Scripts Cefuroxime Axetil (CEFUROXIME) 500 Mg Tablet, 500 MG PO BID, #14 TAB Prov:LV ALFORD MD 10/03/17 Azithromycin (AZITHROMYCIN) 500 Mg Tablet, 1 TAB PO QDAY, #3 TAB Prov:LV ALFORD MD 10/03/17 Reported Medications Levothyroxine Sodium (LEVOTHYROXINE SODIUM) 88 Mcg Tablet, 88 MCG PO QDAY 09/29/17 Buprenorphine Hcl/Naloxone Hcl (SUBOXONE 4 MG-1 MG SL FILM) 1 Each Film, 1 EACH SL BID, FILM 09/29/17 Nortriptyline Hcl (NORTRIPTYLINE HCL) 10 Mg Cap, 25 MG PO HS, CAP 01/11/15 Lidocaine (LIDOCAINE) 35.44 Gm Oint...g., 35.44 GM TP WEEKLY 10/25/12 Lidocaine (LIDOCAINE) 700 Mg Adh..patch, 700 MG TP DAILY 10/25/12 Baclofen (Lioresal) 10 Mg Tab, 10 MG PO BID 04/16/12 Divalproex Sodium (Depakote) 500 Mg Tabcr, 500 MG PO BID, 0 Refills 08/28/10 Discontinued Reported Medications [place]-3 Fatty Acids/Fish Oil (OMEGA-3 FISH OIL SOFTGEL) 1 Each Capsule.dr, 1 EACH PO DAILY 10/25/12 Calcium Carbonate/Vitamin D3 (CALCIUM 600 + VIT D CAPLET) 1 Each Tablet, 1 EACH PO BID 10/25/12 Multivitamins W-Minerals (Multiple Vitamin) 1 Tab Tablet, 1 TAB PO BID 10/25/12 Buprenorphine Hcl/Naloxone Hcl (Suboxone 8 Mg-2 Mg Tablet) 1 Each Tab.subl, 1 EACH SL BID 04/16/12 Discontinued Scripts Azithromycin (AZITHROMYCIN) 500 Mg Tablet, 1 TAB PO QDAY, #3 TAB 0 Refills Prov:LV ALFROD MD 01/14/15 Cefuroxime Axetil (CEFUROXIME) 500 Mg Tablet, 500 MG PO BID, #14 TAB 0 Refills Prov:LV ALFORD MD 01/14/15 Follow up Referrals: Family Practice @ [facility] with Chiki Sanchez Do Diet: Regular Activity: As Tolerated, No Exertion Special Instructions: Home oxygen at 3L via nasal cannula. Follow up with Dr. Sanchez's office on Sunday10/08/17 for CBC and to arrange appointment. Call sooner if any problems. Copies to: CHIKI SANCHEZ DO Venous Thromboembolism Antithrombotics Is Pt On Any Antithrombotics?: No Problem Qualifiers (1) Community acquired pneumonia: Laterality: right Lung location: lower lobe of lung Qualified Codes: J18.1 - Lobar pneumonia, unspecified organism LV ALFORD MD Oct 03, 2017 10:24
== END 2017-10-03 11:25 | disposition home or self-care (01) | DRG 194 ==
LOC: ER 19:15 → MED 21:49
PROVIDERS: ADMIT Internal Medicine; ATTEND Internal Medicine
DX: J18.1 Lobar pneumonia, unspecified organism (principal); D61.818 Other pancytopenia; R09.02 Hypoxemia; G89.29 Other chronic pain; G47.33 Obstructive sleep apnea (adult) (pediatric); E03.9 Hypothyroidism, unspecified; T50.7X5A Adverse effect of analeptics and opioid receptor antagonists, initial encounter; Z91.018 Allergy to other foods; Z88.1 Allergy status to other antibiotic agents; Z88.8 Allergy status to other drugs, medicaments and biological substances; Z95.0 Presence of cardiac pacemaker; Z96.89 Presence of other specified functional implants; Z87.820 Personal history of traumatic brain injury
CPT/HCPCS: 36415; 71046; 80164; 82040; 82247; 82310; 82374; 82435; 82565; 82607; 82746; 82947; 84075; 84132; 84155; 84295; 84443; 84450; 84460; 84484; 84520; 85025; 85379; 85610; 85730; 86140; 87040; 87502; 90471; 90674; 93005; 94640; 96361; 96374; 99285; J0456; J0696; J1650; J7030; J7050

== ENCOUNTER → 2017-11-20 | Outpatient (CLI) | payer MEDICARE ==
[2017-09-30 10:54] VITALS: BMI 32.2
[~2017-11-20] MED LIST changes: +BUPR1FIL SL; +LEVO88TA45 PO
--- NOTE | 2017-11-20 13:48 | RADIOLOGY IMAGING REPORT ---
FACILITY: [facility] PATIENT NAME: Dedrick Izaguirre : 1955 MR: [id number] V: [id number] EXAM DATE: ORDERING PHYSICIAN: ARBEN SANCHEZ TECHNOLOGIST: Location: [facility] [place] Patient: Dedrick Izaguirre : 1955 Visit/Account:[id number] Date of Sevice: 11/20/2017 Exam type: CHEST PA AND LAT History: Cough, chest pain pneumonia Comparison: September 29, 2017. Findings: Bibasilar pleural parenchymal scarring appears similar to the prior study. No definite acute infiltr ates are seen. There is no evidence of pleural effusions or overt pulmonary edema. The cardiac silh ouette is normal in size. Dual lead cardiac pacemaker present and spinal electrodes project over the lower thoracic spine IMPRESSION: 1. Bibasilar pleural parenchyma scarring appears similar to the prior study Report Dictated By: Amanda Bernal MD at 11/20/2017 1:41 PM Report E-Signed By: Amanda Bernal MD at 11/20/2017 1:43 PM WSN:[email or web address]
== END ==
LOC: RAD 11:41
PROVIDERS: ATTEND Family Medicine
DX: R91.8 Other nonspecific abnormal finding of lung field (principal); Z95.0 Presence of cardiac pacemaker
CPT/HCPCS: 71046

== ENCOUNTER → 2017-12-21 | Outpatient (CLI) | payer MEDICARE ==
[2017-09-30 10:54] VITALS: BMI 32.2
== END ==
LOC: RESP 19:48
PROVIDERS: ATTEND Family Medicine
DX: G47.33 Obstructive sleep apnea (adult) (pediatric) (principal); G47.36 Sleep related hypoventilation in conditions classified elsewhere; G47.37 Central sleep apnea in conditions classified elsewhere

== ENCOUNTER 2018-09-17 12:15 | Emergency (ER) | payer OTHER, MEDICARE ==
[2017-09-30 10:54] VITALS: Wt 115.4 kg
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
[2018-09-17] MEDS ORDERED: ACETAMINOPHEN 500 MG TAB PO ONE (15:05)
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
[2018-09-17 16:00] VITALS: BP 141/96
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
== END 2018-09-17 17:13 | disposition home or self-care (01) ==
LOC: ER 12:50
DX: S16.1XXA Strain of muscle, fascia and tendon at neck level, initial encounter (principal); S29.012A Strain of muscle and tendon of back wall of thorax, initial encounter; V43.52XA Car driver injured in collision with other type car in traffic accident, initial encounter; M25.512 Pain in left shoulder; M25.552 Pain in left hip; I48.91 Unspecified atrial fibrillation; Z87.820 Personal history of traumatic brain injury; Z95.0 Presence of cardiac pacemaker; G40.909 Epilepsy, unspecified, not intractable, without status epilepticus
CPT/HCPCS: 72050; 72072; 72125; 99284

== ENCOUNTER → 2019-01-06 | Outpatient (CLI) | payer OTHER, MEDICARE ==
[2017-09-30 10:54] VITALS: BMI 32.2
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
== END ==
LOC: CT 07:08
PROVIDERS: ATTEND Family Medicine
DX: M51.34 Other intervertebral disc degeneration, thoracic region (principal); M50.30 Other cervical disc degeneration, unspecified cervical region
CPT/HCPCS: 72125; 72128

== ENCOUNTER → 2019-01-29 | Outpatient (REF) | payer OTHER, MEDICARE ==
[2017-09-30 10:54] VITALS: BMI 32.2
== END ==
LOC: ZZSENDIN 11:40
PROVIDERS: ATTEND Family Medicine
DX: M54.12 Radiculopathy, cervical region (principal)
CPT/HCPCS: 85610; 85730